=== PATIENT | male | born 1955 | race Caucasian/White ===

== ENCOUNTER → 2021-10-10 | Outpatient (CLI) | payer OTHER, BC | LOC: SJCVC 14:11 | PROVIDERS: ATTEND Internal Medicine Cardiovascular Disease | DX: R93.1 Abnormal findings on diagnostic imaging of heart and coronary circulation (principal); I10 Essential (primary) hypertension; E78.00 Pure hypercholesterolemia, unspecified; I77.810 Thoracic aortic ectasia; R42 Dizziness and giddiness; Z88.8 Allergy status to other drugs, medicaments and biological substances; Z79.899 Other long term (current) drug therapy; E78.5 Hyperlipidemia, unspecified ==

== ENCOUNTER → 2021-10-23 | Outpatient (CLI) | payer OTHER, BC | LOC: CAT 08:48 | PROVIDERS: ATTEND Internal Medicine Cardiovascular Disease | DX: I77.810 Thoracic aortic ectasia (principal); I77.4 Celiac artery compression syndrome ==

== ENCOUNTER → 2021-10-23 | Outpatient (CLI) | payer OTHER, BC | LOC: SJCVCIMAG 07:15 | PROVIDERS: ATTEND Internal Medicine Cardiovascular Disease | DX: I25.9 Chronic ischemic heart disease, unspecified (principal); R00.0 Tachycardia, unspecified; R93.1 Abnormal findings on diagnostic imaging of heart and coronary circulation; I10 Essential (primary) hypertension; E78.00 Pure hypercholesterolemia, unspecified; I77.810 Thoracic aortic ectasia; R42 Dizziness and giddiness; I77.819 Aortic ectasia, unspecified site; I73.9 Peripheral vascular disease, unspecified; E78.5 Hyperlipidemia, unspecified; Z88.8 Allergy status to other drugs, medicaments and biological substances; Z79.82 Long term (current) use of aspirin; Z79.899 Other long term (current) drug therapy; Z72.89 Other problems related to lifestyle ==

== ENCOUNTER → 2021-11-21 | Outpatient (CLI) | payer OTHER, BC | LOC: SJCVC 12:53 | PROVIDERS: ATTEND Internal Medicine Cardiovascular Disease | DX: I25.10 Atherosclerotic heart disease of native coronary artery without angina pectoris (principal); R93.1 Abnormal findings on diagnostic imaging of heart and coronary circulation; I10 Essential (primary) hypertension; E78.00 Pure hypercholesterolemia, unspecified; I77.810 Thoracic aortic ectasia; Z79.82 Long term (current) use of aspirin; Z79.899 Other long term (current) drug therapy ==

== ENCOUNTER → 2021-11-29 | Outpatient (CLI) | payer OTHER, BC ==
[~2021-11-29] VITALS: Ht 177.8 cm; Wt 97.5 kg
[~2021-11-29] MED LIST: ASA81BEC PO; LISINOPRIL20 MG PO; NORVASC5 MG PO; ROSUVASTATIN CA40 MG PO; TOPROL XL50 MG PO
[2021-11-29 10:35] VITALS: BP 136/85
--- NOTE | 2021-11-29 13:16 | NUR ---
PT TO CV HOLDING RM. MONITORS APPLYED. PT A/OX3 WITH NO C/O. AT BEDSIDE DINNER TRAY PROVIDED.
--- NOTE | 2021-11-29 13:21 | EKG ---
[address] [address] ELECTROCARDIOGRAM REPORT Name: RENITA BELTRAN Room #: [facility]#: [id number] Admission: 11/29/21 Attend Phys: Mauro Arauz MD Discharge: Date of : 57 Report #: [id number] [facility] Test Date: 2021-11-29 Test Time: 10:21:11 Pat Name: RENITA BELTRAN Department: Room: Gender: Second Class Welder: [facility] : 1955 Requested By: Mauro Arauz Order Number: [id number] : Genaro Moreno Measurements Intervals [place] Rate: 60 P: -18 CO: 193 QRS: -14 QRSD: 107 T: 3 QT: 416 QTc: 416 Interpretive Statements Sinus rhythm No previous ECG available for comparison Electronically Signed On 11-29-2021 13:20:56 [facility] by Genaro Moreno [email or web address] <ELECTRONICALLY SIGNED> By: Genaro Moreno MD, [facility] 11/29/21 1320 1021 1021 Genaro Moreno MD, FACC /EPI
--- NOTE | 2021-11-29 14:35 | CATHLAB ---
[facility] [place] [address] INVASIVE PROCEDURE REPORT Name: RENITA BELTRAN Daryl Room #: REG [facility].#: [id number] Admission: 11/29/21 Attend Phys: Mauro Arauz MD Discharge: Date of : 57 Report #: [id number] THIS REPORT FOR: cc: Jake Ely III, MD, III, Charles R. MD Park, Jin S. MD ~ APPROVED REPORT Study performed: 11/29/2021 10:43:21 Patient Details Patient Status: Out-Patient Room #: The patient is a 66 year-old male Event Personnel Mauro Arauz Patient Admitting Clerk, Dagoberto Cotton RN RN, Yadira Higgins RTR Monitor, Zahira Bergeron RTR, MULE TENDER Scrub Procedures Performed Art Access - R femoral artery* Left Heart Cath w/or w/o Coronaries [id number] [facility] Hemostasis with Manual pressure 86493 Initial Mod Sed Same Phys/QHP Gr5y 707350 Indication Dyspnea, Positive stress test Risk Factors Hypercholesterolemia, Coronary Artery DiseaseHypertension Procedure Narrative The Right Groin^ was infiltrated with 1% Lidocaine subcutaneous anesthesia. A PINNACLE 4FR Sheath #[id number] sheath was inserted into the RFA^. Coronary angiography was performed using coronary diagnostic catheters. The right coronary system was accessed and visualized with a JR4 catheter. The left coronary system was accessed and visualized with a 4FR JL 5.0 #[id number] catheter. The left ventricle was accessed and visualized with a JR4 catheter. Left ventricular/Aortic Valve gradient assessed via catheter pullback. Hemostasis was obtained with manual pressure following sheath removal without any complications. The patient tolerated the procedure well and there were no complications associated with the procedure. There was no hematoma. Intraoperative Conscious Sedation [facility] [address] [place] [address] INVASIVE PROCEDURE REPORT Name: RENITA BELTRAN aDryl Room #: REG [facility]#: [id number] Admission: 11/29/21 Attend Phys: Mauro Arauz MD Discharge: Date of : 57 Report #: [id number] Sedation start time: 12:26 Case end Time: 12:57 Fentanyl 50 mcg Versed 1 mg Fluoro Time: 2.00 minutes Dose: DAP 6583.00 cGycm2 940 mGy Contrast Type and Amount: Omnipaque 55 ml Coronary Angiography The patient's coronary anatomy is right dominant. Diagnostic Cath Left Main Left main artery is a large-caliber vessel, patent with no flow-limiting lesions. LAD The LAD is a moderate-sized caliber vessel, tortuous as it courses the anterior wall and wraps around the apex. There is mild diffuse disease in the proximal segment, less than 20%. Diagonal 1 There is a moderate-sized caliber vessel, originating from the mid LAD segment. There is mild disease in the proximal segment, 20%. Circumflex The left circumflex artery a moderate-sized caliber vessel, with mild disease proximally, 20%. OM1 This is a moderate-sized caliber vessel, with mild disease proximally. It supplies several branches as it courses the lateral wall. Right Coronary The RCA is a dominant vessel, patent with no flow-limiting lesions. R PDA This is a moderate-sized caliber vessel, patent with no flow-limiting lesions. RPLV This is a small to moderate-sized caliber vessel, patent with no flow-limiting lesions. Left Ventriculography Left Ventriculography was not performed. Ejection Fraction was 60% based off patient's Nuclear Cardiac Stress Test. An LVEDP was measured and there is no gradient across the outflow tract. Hemodynamics The aortic pressure is 128/57 mmHg with a mean of 88 mmHg. The left ventricular pressure is 124/6 mmHg with a mean of mmHg. The left ventricular end diastolic pressure is 19 mmHg. Conclusion 1. There is mild, nonobstructive disease in the LAD, first diagonal artery and OM1. [address] [address] INVASIVE PROCEDURE REPORT Name: RENITA BELTRAN Room #: REG [facility]#: [id number] Admission: 11/29/21 Attend Phys: Mauro Arauz MD Discharge: Date of : 57 Report #: [id number] 2. There is a right dominant system. 3. There is normal LV systolic function. 4. Recommend risk factor management. <ELECTRONICALLY SIGNED> By: Mauro Arauz MD 11/29/21 1435 1435 1435 Mauro Arauz MD /INF
--- NOTE | 2021-11-29 15:11 | NUR ---
PT AMBULATED WITHOUT DIFFICULTY. R GROIN CDI WITH NO HEMATOMA
== END | disposition home or self-care (01) ==
LOC: CATH 07:38
PROVIDERS: ATTEND Internal Medicine Cardiovascular Disease
DX: R94.39 Abnormal result of other cardiovascular function study (principal); I25.10 Atherosclerotic heart disease of native coronary artery without angina pectoris; R06.00 Dyspnea, unspecified; I10 Essential (primary) hypertension; E78.00 Pure hypercholesterolemia, unspecified; Z98.890 Other specified postprocedural states; Z79.899 Other long term (current) drug therapy; Z82.49 Family history of ischemic heart disease and other diseases of the circulatory system

== ENCOUNTER → 2021-12-13 | Outpatient (CLI) | payer OTHER, BC | LOC: SJCVC 13:30 | PROVIDERS: ATTEND Internal Medicine Cardiovascular Disease | DX: I49.3 Ventricular premature depolarization (principal); I25.10 Atherosclerotic heart disease of native coronary artery without angina pectoris; I10 Essential (primary) hypertension; E78.00 Pure hypercholesterolemia, unspecified; I77.810 Thoracic aortic ectasia; Z88.8 Allergy status to other drugs, medicaments and biological substances; Z79.82 Long term (current) use of aspirin; Z79.899 Other long term (current) drug therapy ==